=== PATIENT | male | born 1945 | race Caucasian/White ===

== ENCOUNTER 2016-05-23 15:55 | Emergency (ER) | payer MEDICARE, BC ==
[~2016-05-23] VITALS: Ht 177.8 cm; Wt 89.1 kg
[2016-05-23 15:57] VITALS: BP 164/75; PULSE 101; RESP 16; TEMP 98.2; O2SAT 95
--- NOTE | 2016-05-23 18:23 | PD ---
HPI Chief Complaint: Flank/Kidney Pain Time Seen by Provider: 18:23 Travel History International Travel<30 days: No Contact w/Intl Traveler<30days: No Traveled to known affect area: No History of Present Illness HPI 70-year-old male with history of multiple myeloma, presents to emergency department for evaluation of left flank pain acute onset 4 days ago. Patient believes that it may be secondary to a muscle strain from trying to pull himself up. He is concerned however because of the medication that he takes that it may have to do with his kidneys or he may have a kidney stone. He states the pain "blends in" with his chronic pain while at rest but when he reaches forward with his left arm the pain is exacerbated. Denies any other injury. No urinary symptoms. No hematuria. No fever or chills. No nausea, vomiting, diarrhea. No chest pain or tightness. No other symptoms to report. PFSH Past Medical History Diabetes: Yes Social History Tobacco Use: No Allergies-Medications (Allergen,Severity, Reaction): Coded Allergies: Cephalexin (Verified Allergy, Unknown, 05/23/16) Review of Systems Except as stated in HPI: all other systems reviewed are Neg Physical Exam Narrative GENERAL: Well-nourished male patient, ambulatory no acute distress SKIN: Warm and dry. Scaled, flaking skin bilateral extremities. HEAD: Atraumatic. Normocephalic. EYES: Pupils equal and round. No scleral icterus. No injection or drainage. ENT: No nasal bleeding or discharge. Mucous membranes pink and moist. NECK: Trachea midline. No JVD. CARDIOVASCULAR: Elevated rate and rhythm. No murmur appreciated. RESPIRATORY: No accessory muscle use. Clear to auscultation. Breath sounds equal bilaterally. GASTROINTESTINAL: Abdomen soft, non-tender, nondistended. Hepatic and splenic margins not palpable. MUSCULOSKELETAL: No obvious deformities. No clubbing. No cyanosis. No edema. NEUROLOGICAL: Awake and alert. No obvious cranial nerve deficits. Motor grossly within normal limits. Normal speech. PSYCHIATRIC: Appropriate mood and affect; insight and judgment normal. Data Data Last Documented VS Vital Signs Date Time Temp Pulse Resp B/P Pulse Ox O2 Delivery O2 Flow Rate FiO2 05/23/16 15:57 98.2 101 16 164/75 95 Orders Complete Blood Count With Diff (05/23/16 18:29) Basic Metabolic Panel (Bmp) (05/23/16 18:29) Urinalysis - C+S If Indicated (05/23/16 18:29) Ct Abd/Pel W/O Iv Contrast (05/23/16 ) Labs Laboratory Tests Test 05/23/16 05/23/16 18:50 19:56 White Blood Count 3.8 TH/MM3 Red Blood Count 3.49 MIL/MM3 Hemoglobin 10.9 GM/DL Hematocrit 32.3 % Mean Corpuscular Volume 92.5 FL Mean Corpuscular Hemoglobin 31.1 PG Mean Corpuscular Hemoglobin 33.7 % Concent Red Cell Distribution Width 18.6 % Platelet Count 103 TH/MM3 Mean Platelet Volume 7.0 FL Neutrophils (%) (Auto) 58.4 % Lymphocytes (%) (Auto) 33.3 % Monocytes (%) (Auto) 6.6 % Eosinophils (%) (Auto) 1.0 % Basophils (%) (Auto) 0.7 % Neutrophils # (Auto) 2.2 TH/MM3 Lymphocytes # (Auto) 1.3 TH/MM3 Monocytes # (Auto) 0.3 TH/MM3 Eosinophils # (Auto) 0.0 TH/MM3 Basophils # (Auto) 0.0 TH/MM3 CBC Comment DIFF FINAL Differential Comment Sodium Level 135 MEQ/L Potassium Level 5.0 MEQ/L Chloride Level 104 MEQ/L Carbon Dioxide Level 20.7 MEQ/L Anion Gap 10 MEQ/L Blood Urea Nitrogen 22 MG/DL Creatinine 0.87 MG/DL Estimat Glomerular Filtration 87 ML/MIN Rate Random Glucose 186 MG/DL Calcium Level 8.8 MG/DL Urine Color YELLOW Urine Turbidity CLEAR Urine pH 5.5 Urine Specific [place] 1.018 Urine Protein TRACE mg/dL Urine Glucose (UA) 150 mg/dL Urine Ketones NEG mg/dL Urine Occult Blood NEG Urine Nitrite NEG Urine Bilirubin NEG Urine Urobilinogen LESS THAN 2.0 MG/DL Urine Leukocyte Esterase NEG Urine RBC LESS THAN 1 /hpf Urine WBC 1 /hpf Urine Squamous Epithelial <1 /hpf Cells Urine Mucus FEW /lpf Microscopic Urinalysis Comment CULT NOT INDICATED MDM Medical Decision Making Medical Screen Exam Complete: Yes Emergency Medical Condition: Yes Medical Record Reviewed: Yes Differential Diagnosis Renal calculi versus UTI versus muscle strain versus spasm versus metastatic disease Narrative Course 70-year-old male presents to the emergency department for evaluation of left- sided flank pain 4 days. Patient appears overall well and without distress. He does a slightly elevated heart rate. Workup was initiated in triage. CBC is without leukocytosis. Mild leukopenia 8. Hemoglobin is 10.9. Platelets are 103. BMP is without acute concern. Patient is hyperglycemic 186. Urinalysis is without acute concern. There is 150 glucose urea. Last 24 hours Impressions Abdomen/Pelvis CT 05/23/16 0000 Signed Impressions: Service Date/Time: May 18:59 - CONCLUSION: 1. No stones or evidence of obstructive uropathy. 2. 11 mm low attenuation lesion upper pole of the left kidney most likely a cyst. 3. Sigmoid colon diverticulosis without diverticulitis. 4. Large gallstone. No inflammatory changes or ductal dilatation. 5. Previous inguinal hernia repair without evidence of an acute complication. 6. Small hernia to the right of the umbilicus containing fat only. 7. Aorto iliac atherosclerosis. No aneurysm. 8. Subcentimeter sclerotic focus of the L2 vertebral body, nonspecific. If a metastasis, statistically speaking it would most likely be prostate carcinoma. Please correlate clinically and with PSA. If felt indicated, whole body bone scan suggested. I don't see any similar lesions. There are lumbar spine degenerative changes. Shawn Corral MD Patient is aware of the bony lesion on his vertebrae. Otherwise CT imaging is without acute concern. I discussed the patient might any physician Dr. Barreto who agrees the patient can be discharged home. He agrees to return immediately with any acute worsening symptoms. Diagnosis Primary Impression: Left flank pain Additional Impressions: Muscle strain History of multiple myeloma Referrals: Primary Care Physician Patient Instructions: General Instructions, Muscle Strain (ED) Additional Instructions: Ice and/or warm ice may help to alleviate symptoms Follow-up with her primary care provider Return immediately to the emergency department with any acute worsening of symptoms Med/Other Pt SpecificInfo: Prescription(s) given Scripts Methocarbamol (Robaxin)500 Mg [id number] Mg PO QID PRN (MUSCLE SPASM) #30 TAB Ref 0 Prov:Alexsandra Babb 05/23/16 Disposition: 01 DISCHARGE HOME Condition: Stable Alexsandra Babb May 23, 2016 18:23
[2016-05-23 19:30] LABS: AUTOMATED NEUTROPHIL # 2.2 TH/MM3 (1.8-7.7); BASOPHIL % 0.7 % (0.0-2.0); HEMATOCRIT 32.3 % (39.0-51.0); HEMO FLAGS DIFF FINAL; LYMPH % 33.3 % (9.0-44.0); LYMPHOCYTE # 1.3 TH/MM3 (1.0-4.8); MEAN CELL VOLUME 92.5 FL (80.0-100.0); MEAN CORPUSCULAR HEMOGLOBIN 31.1 PG (27.0-34.0); MEAN CORPUSCULAR HGB CONC 33.7 % (32.0-36.0); MONO % 6.6 % (0.0-8.0); NEUT % 58.4 % (16.0-70.0); PLATELET COUNT 103 TH/MM3 (150-450); RED BLOOD COUNT 3.49 MIL/MM3 (4.50-5.90); RED CELL DISTRIBUTION WIDTH 18.6 % (11.6-17.2); WHITE BLOOD COUNT 3.8 TH/MM3 (4.0-11.0)
[2016-05-23 19:36] LABS: BICARBONATE 20.7 MEQ/L (21.0-32.0)
--- NOTE | 2016-05-23 19:37 | RADRPT ---
EXAM DATE/TIME: 05/23/2016 18:59 [facility] COMPARISON: No previous studies available for comparison. INDICATIONS : Left flank pain starting five days ago. ORAL CONTRAST: No oral contrast ingested. RADIATION DOSE: 20.49 CTDIvol (mGy) MEDICAL HISTORY : Diabetes SURGICAL HISTORY : None. ENCOUNTER: Initial ACUITY: 4 - 6 days PAIN SCALE: 6/10 LOCATION: Left Abdomen TECHNIQUE: Volumetric scanning of the abdomen and pelvis was performed. Using automated exposure control and ad justment of the mA and/or kV according to patient size, radiation dose was kept as low as reasonably achievable to obtain optimal diagnostic quality images. FINDINGS: LOWER LUNGS: The visualized lower lungs are clear. LIVER: Homogeneous density without lesion. There is no dilation of the biliary tree. There is a 23 mm stone in an otherwise normal-appearing gallbladder.. SPLEEN: Normal size without lesion. PANCREAS: Within normal limits. KIDNEYS: Normal in size and shape. No stone or hydronephrosis. 11 mm decreased attenuation lesion seen mediall y upper pole of the left kidney.. ADRENAL GLANDS: Within normal limits. VASCULAR: There is atherosclerotic calcification of the abdominal aorta and iliac arteries. No aneurysm. BOWEL/MESENTERY: There is diverticulosis of the left side of the colon. No acute inflammatory changes are seen. No obs truction. ABDOMINAL WALL: 12 mm defect seen to the right of the umbilicus containing fat only. RETROPERITONEUM: There is no lymphadenopathy. BLADDER: No wall thickening or mass. REPRODUCTIVE: Nonspecific prostate enlargement. INGUINAL: Previous left inguinal hernia repair without evidence of an acute complication. MUSCULOSKELETAL: No fracture demonstrated. There is an 8 mm sclerotic focus within the L2 vertebral body, indeterminat e. Degenerative changes are seen of the lumbar spine and sacroiliac joints. CONCLUSION: 1. No stones or evidence of obstructive uropathy. 2. 11 mm low attenuation lesion upper pole of the left kidney most likely a cyst. 3. Sigmoid colon diverticulosis without diverticulitis. 4. Large gallstone. No inflammatory changes or ductal dilatation. 5. Previous inguinal hernia repair without evidence of an acute complication. 6. Small hernia to the right of the umbilicus containing fat only. 7. Aorto iliac atherosclerosis. No aneurysm. 8. Subcentimeter sclerotic focus of the L2 vertebral body, nonspecific. If a metastasis, statisticall y speaking it would most likely be prostate carcinoma. Please correlate clinically and with PSA. If f elt indicated, whole body bone scan suggested. I don't see any similar lesions. There are lumbar spin e degenerative changes. Shawn Corral MD on May 23, 2016 at 19:27 Board Certified Radiologist. This report was verified electronically.
[2016-05-23 20:24] LABS: BLOOD, URINE NEG (NEG); COMMENT (UR) CULT NOT INDICATED; CULTURE IF INDICATED CULT NOT INDICATED; GLUCOSE,URINE 150 mg/dL (NEG); KETONE, URINE NEG (NEG); MUCUS URINE FEW /lpf (OCC); NITRITE,URINE NEG (NEG); PH, URINE 5.5 (5.0-8.5); SQUAMOUS EPITHELIAL CELL URINE <1 /hpf (0-5); URINE COLOR YELLOW (YELLW/STRAW)
[2016-05-23] MEDS ORDERED: ROBA500T PO (20:30)
== END 2016-05-23 21:16 | disposition home or self-care (01) ==
LOC: NETRI 15:55
DX: R10.9 Unspecified abdominal pain (principal); C90.00 Multiple myeloma not having achieved remission
CPT/HCPCS: 74176; 80048; 81001; 85025